=== PATIENT | female | born 1960 | race Caucasian/White ===

== ENCOUNTER 2017-01-22 00:21 | Emergency (ER) | payer OTHER ==
[~2017-01-22] VITALS: Ht 170.2 cm; Wt 61.2 kg
[~2017-01-22 00:21] MED LIST: ACETAMINOPHEN PO; ALPRAZOLAM PO; AUGMENTIN PO; CELEXA PO; CYMBALTA PO; DIAZEPAM PO; EXCEDRIN MIGRAI1 TA1 PO; FLEXERIL PO; GAS-X166 MG PO; IMODIUM2 MG PO; KETOPROFEN PO; KLONOPIN; LORTAB 10-5001 EACH PO; LORTAB 10/500 T1 TAB PO; MEDROL4 MG/DOSE- PO; TYLOX 5/500 CAP1 CAP PO; VICODIN 5/500 T1 TAB PO; VICODIN PO; ZANTAC PO
[2017-01-22 02:46] LABS: ALBUMIN SERUM 3.8 g/dL (3.5-5.0); ALKALINE PHOSPHATASE 94 U/L (32-92); ALT (SGPT) 10 U/L (10-40); AST (SGOT) 11 U/L (10-42); BILIRUBIN, DIRECT 0.1 mg/dL (0.0-0.2); BILIRUBIN,INDIRECT 0.7 mg/dL (0.0-0.9); BILIRUBIN,TOTAL 0.8 mg/dL (0.2-2.0); BLOOD UREA NITROGEN 6 mg/dL (9-23); CALCIUM SERUM 8.9 mg/dL (8.4-10.2); CARBON DIOXIDE 27 mmol/L (22-31); CHLORIDE 105 mmol/L (100-111); CREATININE SERUM 0.5 mg/dL (0.6-1.4); GLUCOSE FASTING 89 mg/dL (70-110); POTASSIUM 3.1 mmol/L (3.5-5.1); PROTEIN TOTAL SERUM 6.9 g/dL (6.0-8.3); SALICYLATE <4.0 mg/dL; SODIUM 140 mmol/L (135-145)
[2017-01-22 02:47] LABS: ACETAMINOPHEN <10 ug/mL; ALCOHOL BLOOD <5 mg/dL (0)
[2017-01-22 04:48] LABS: AMPHETAMINE NEG (NEG); BARBITURATES NEG (NEG); BENZODIAZEPINES POS (NEG); COCAINE NEG (NEG); MARIJUANA NEG (NEG); OPIATES NEG (NEG); TRICYCLIC ANTIDEPRESSANTS NEG (NEG); U METHADONE NEG (NEG)
== END 2017-01-22 08:30 ==
LOC: CED 00:21
PROVIDERS: Emergency Medicine
DX: R45.851 Suicidal ideations (principal); Z88.8 Allergy status to other drugs, medicaments and biological substances
CPT/HCPCS: 36415; 80048; 80076; 80307; 99285; G0480

== ENCOUNTER 2017-01-22 03:00 | Inpatient (IN) | payer OTHER ==
[~2017-01-22] VITALS: Ht 160 cm; Wt 61.2 kg
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
--- NOTE | ~2017-01-22 | HP ---
Unit #: [id number] #: [id number] Patient: ADAM NOYOLA [id number] [place] [address] [id number] MR#: [id number] NAME: ADAM NOYOLA. ROOM: P210 Age: 56 Sex: F Admission Date: 01/22/2017 : 1960 Attending Physician: Reagan Soler M.D. Admitting Physician: Reagan Soler M.D. Primary Care Physician: Generic Doctor Not In System HISTORY AND PHYSICAL HISTORY OF PRESENT ILLNESS Adam is a 56 year old admitted to [address] [place] [address] with depression and after she verbalized to her family that she was going to hurt herself. PAST MEDICAL HISTORY 1. COPD. 2. Degenerative disc disease. 3. Fibromyalgia. 4. Chronic diarrhea. PAST SURGICAL HISTORY Nothing reported. ALLERGIES Darvon, Ultram, amitriptyline. SOCIAL HISTORY Smokes 1 pack per day. Drinks alcohol on occasion. Denies illicit drug use. FAMILY HISTORY Medically noncontributory. REVIEW OF SYSTEMS CONSTITUTIONAL: No fever or chills. HEENT: Denies any sore throat, ear pain or runny nose. CARDIOVASCULAR: Denies chest pain, irregular heart rhythm or palpitations. CHEST: Denies shortness of breath or cough. No hemoptysis. GASTROINTESTINAL: Denies nausea, vomiting, diarrhea or chronic constipation. ENDOCRINE: Denies history of increased thirst or urination. No recent significant weight loss or gain. GENITOURINARY: Denies dysuria, frequency, or hematuria. SKIN: Denies any rashes. HEMATOLOGIC: Denies history of increased bleeding or bruising. MUSCULOSKELETAL: Denies any hot, swollen joints. No generalized muscle pain. NEUROLOGIC: Denies problems with vision or speech. No frequent, severe headaches. No numbness, tingling or weakness in any extremities. Denies loss of bladder or bowel control. CURRENT MEDICATIONS 1. Norvasc 5 mg daily. 2. Neurontin 400 mg t.i.d. Unit #: [id number] #: [id number] Patient: ADAM NOYOLA 3. Flexeril 10 mg t.i.d. 4. Valium 5 mg t.i.d. 5. Milk of Magnesia p.r.n. 6. Maalox p.r.n. 7. Tylenol p.r.n. 8. Percocet 10/325 one tab q.i.d. p.r.n. 9. Nicotine patch 14 mg daily. PHYSICAL EXAMINATION GENERAL: Alert, appearing much, much older than her stated age of 56, in no apparent distress. VITAL SIGNS: Blood pressure 116/80, heart rate 78, respirations 16, temperature 98.6. WEIGHT: 135. HEIGHT: 5 feet 3 inches. SKIN: Warm and dry without rash or lesion. HEENT: Normocephalic. TMs not viewed. Oral and nasal passages clear. Conjunctivae clear. PERRLA. EOMs intact. NECK: Supple without lymphadenopathy or thyromegaly. HEART: Regular rate and rhythm without murmur. LUNGS: Clear. ABDOMEN: Soft, nontender. : Not done. EXTREMITIES: No evidence of cyanosis, clubbing or edema. Moves all without focal deficit. NEUROLOGICAL: Grossly within normal limits. Cranial Nerves: II: Visual henry are intact. III, IV AND : Extraocular movements are intact. Pupils are equal, round and reactive to light. V: Facial sensation is grossly normal. VII: Facial movements and expression are normal. VIII: Auditory acuity grossly intact. IX, X: Uvula is midline. Phonation is normal. XI: Patient shrugs shoulders and turns head normally. XII: Tongue protrudes in the midline. Sensory and Motor Function: Sensory and motor sensation is grossly normal. Motor: moves all extremities well. Coordination: Gait is normal. Deep Tendon Reflexes: Intact. IMPRESSION Psychiatric admission. RECOMMENDATIONS PSYCHIATRIC: Per psychiatrist. MEDICAL: See no contraindication to participate in facility's activities. MEDICAL PROGNOSIS Good. MEDICAL CONDITION Stable. Dictated by... Sharona Evans P.A.-C. for Lilia Arias/[facility] Unit #: [id number] #: [id number] Patient: ADAM NOYOLA TD: 01/22/2017 17:29 JOB #: [id number] HISTORY AND PHYSICAL Page 1 of 1 X Sharona Evans X HISTORY AND PHYSICAL
[2017-01-23 13:22] LABS: BASOPHIL% 0.4 % (0-2.5); EOSINOPHIL# 0.2 X10e3 (0-0.7); EOSINOPHIL% 2.3 % (0.0-7.0); HEMATOCRIT 41.1 % (35.0-45.0); HEMOGLOBIN 13.4 gm/dL (12.0-16.0); LYMPHOCYTE# 2.4 X10e3 (1.0-3.5); LYMPHOCYTE% 30.2 % (17.0-45.0); MEAN CELL VOLUME 88.9 FL (83-96); MEAN CORPUSCULAR HEMOGLOBIN 29.1 PG (28-34); MEAN CORPUSCULAR HGB CONC 32.7 g/dL (30-36); MEAN PLATELET VOLUME 8.6 FL (6.5-11.5); MONOCYTE# 0.3 X10e3 (0-1.0); MONOCYTE% 4.3 % (3.0-12.0); NEUTROPHIL% 62.8 % (40-75); PLATELET COUNT 339 X10e3 (140-420); RED BLOOD COUNT 4.63 X10e (3.90-5.30); WHITE BLOOD COUNT 7.9 X10e3 (4.0-10.5)
[2017-01-23 13:27] LABS: ALBUMIN SERUM 3.8 g/dL (3.5-5.0); ALKALINE PHOSPHATASE 78 U/L (32-92); ALT (SGPT) 10 U/L (10-40); AST (SGOT) 14 U/L (10-42); BLOOD UREA NITROGEN 9 mg/dL (9-23); BUN/CREATININE RATIO 12.85; CALCIUM SERUM 9.1 mg/dL (8.4-10.2); CARBON DIOXIDE 28 mmol/L (22-31); CHLORIDE 105 mmol/L (100-111); CREATININE SERUM 0.7 mg/dL (0.6-1.4); GLOM FILT RATE Estimated 97.5 mL/min (>60); GLUCOSE FASTING 152 mg/dL (70-110); POTASSIUM 3.3 mmol/L (3.5-5.1); PROTEIN TOTAL SERUM 6.3 g/dL (6.0-8.3); SODIUM 142 mmol/L (135-145)
[2017-01-23 13:28] LABS: BILIRUBIN,TOTAL <0.1 mg/dL (0.2-2.0)
[2017-01-23 14:16] LABS: DIFF IND NO
== END 2017-01-23 13:58 | disposition home or self-care (01) | DRG 881 ==
LOC: P2S 09:23
PROVIDERS: Specialist
DX: F34.1 Dysthymic disorder (principal); I10 Essential (primary) hypertension; G89.29 Other chronic pain; Z88.8 Allergy status to other drugs, medicaments and biological substances; Z59.0 Homelessness; F17.210 Nicotine dependence, cigarettes, uncomplicated
CPT/HCPCS: 80048; 80053; 80076; 80307; 85025; G0480